=== PATIENT | female | born 1970 | race Caucasian/White ===

== ENCOUNTER 2017-01-17 13:52 | Emergency (ER) | payer OTHER ==
[2017-01-17 14:04] VITALS: BP 107/50
[2017-01-17] MEDS ORDERED: Lidocaine 2% VISCOUS* 15 ML UDC PO ONE (14:14)
--- NOTE | 2017-01-17 14:21 | UC ---
Dental HPI - HPI Summary HPI Summary: 46 YEAR OLD FEMALE PRESENTS WITH COMPLAINS OF LEFT DENTAL/GUM PAIN. OF NOTE SHE HAD A TOOTH PULLED YESTERDAY. - History of Current Complaint Chief Complaint: UCDentalProblem Stated Complaint: DENTAL PAIN ARM PAIN Time Seen by Provider: 01/17/17 13:56 Hx Obtained From: Patient Onset/Duration: Sudden Onset Severity: Moderate Pain Scale Used: 0-10 Numeric - 7 Aggravating: Chewing - Allergies/Home Medications Allergies/Adverse Reactions: Allergies Allergy/AdvReac Type Severity Reaction Status Date / Time Sulfa Drugs Allergy Rash Verified 07/03/15 13:48 PMH/Surg Hx/FS Hx/Imm Hx Previously Healthy: Yes - Surgical History Surgical History: Yes Surgery Procedure, Year, and Place: [place], [place] [facility] [place] [facility] [place] [facility] [place] LEFT KNEE ARTHROSCOPY PARTIAL MEDIAL MENISCECTOMY[place] [facility] [place] - Family History Known Family History: Positive: None - Social History Alcohol Use: Rare Alcohol Amount: 1 PER MONTH Substance Use Type: Excessive Caffeine Substance Use Comment - Amount & Last Used: 2 CANS PEPSI, 3 CANS OF ENERGY DRINKS Smoking Status (MU): Heavy Every Day Tobacco Smoker Type: Cigarettes Amount Used/How Often: 1 PPD Length of Time of Smoking/Using Tobacco: 25 YEARS Have You Smoked in the Last Year: Yes Review of Systems Constitutional: Negative Skin: Negative Eyes: Negative ENT: Dental Pain Respiratory: Negative Cardiovascular: Negative Gastrointestinal: Negative Genitourinary: Negative Motor: Negative Neurovascular: Negative Musculoskeletal: Negative Neurological: Negative Psychological: Negative All Other Systems Reviewed And Are Negative: Yes Physical Exam Triage Information Reviewed: Yes Vital Signs: Initial Vital Signs Temp 36.7 C 01/17/17 13:54 Pulse 60 01/17/17 13:54 Resp 18 01/17/17 13:54 BP 107/50 01/17/17 13:54 Pulse Ox 99 01/17/17 13:54 Eye Exam: Normal ENT Exam: Normal Dental: Positive: Abscess @ Neck exam: Normal Neck: Positive: 1 Respiratory Exam: Normal Cardiovascular Exam: Normal Abdominal Exam: Normal Musculoskeletal Exam: Normal Neurological Exam: Normal Psychological Exam: Normal Skin Exam: Normal Dental Complaint Course/Dx - Differential Dx/Diagnosis Differential Diagnosis/Dx: Dental Abscess Provider Diagnoses: DENTAL ABSCESS Discharge - Discharge Plan Condition: Stable Disposition: HOME Prescriptions: Amoxicillin/Clavulanate TAB* [Augmentin TAB 875*] 875 mg PO BID #20 tab Chlorhexidine MW 0.12% 473ML* [Peridex Mouth Wash 0.12%*] 15 ml PO TID PC #1 btl Magic M W2 Mark/Maal/Nyst/Lido* 5 ml SWISH SPIT QID #120 ml Methylprednisolone [Medrol Dosepak 4 MG*] 4 mg PO .SEE YUNG INSTRUCTION #21 tab Patient Education Materials: Dental Abscess (ED) Referrals: Adonis Rodriguez MD [Primary Care Provider] - Chad Machado MD [Medical Doctor] -
== END 2017-01-17 14:40 | disposition home or self-care (01) ==
LOC: UCEAST 13:52
DX: K04.7 Periapical abscess without sinus (principal); Z88.2 Allergy status to sulfonamides; F17.210 Nicotine dependence, cigarettes, uncomplicated
CPT/HCPCS: 99212; G0463

== ENCOUNTER 2022-12-13 13:25 | Inpatient (IN) ==
[2022-12-13] MEDS ORDERED: Ondansetron 4 mg VIAL 2 MG/ML 2 ml VIAL IV ONE (13:42)
[2022-12-13] MEDS ORDERED: NS 0.9% 1000 ml BAG 1,000 ML IV ONE ×2 (13:42→16:14)
[2022-12-13 14:05] LABS: ABS Basophils 0.1 10^3/uL (0.0-0.1); ABS Lymphocytes 1.3 10^3/uL (1.0-4.8); ABS Monocytes 0.9 10^3/uL (0.0-0.9); ABS Neutrophils 9.4 10^3/uL (1.5-7.6); ABS Nucleated RBC 0.01 10^3/ul; Eosinophil % 0.2 %; Hematocrit 34.4 % (35-45); Hemoglobin 11.4 g/dL (11.5-14.3); Lymphocyte % 11.3 %; Mean Corpuscular Hemoglobin 28.3 pg (27-33); Mean Corpuscular Hgb Conc 33.1 g/dL (31-36); Mean Corpuscular Volume 85.4 fL (80-97); Mean Platelet Volume 8.6 fL (7.5-11.2); Nucleated Red Blood Cells % 0.1 /100 WBC (0.0-0.4); Platelet Count 228 10^3/uL (150-450); Red Blood Count 4.03 10^6/uL (3.63-4.92); Red Cell Distribution Width 14.4 % (12-17); White Blood Count 11.6 10^3/uL (3.8-11.8)
[2022-12-13 14:22] LABS: ALT 19 U/L (7-52); AST 17 U/L (13-39); Albumin 3.9 g/dL (3.2-5.2); Albumin/Globulin Ratio 1.4 (1-3); Alkaline Phosphatase 86 U/L (35-149); Anion Gap 7 mmol/L (2-16); Blood Urea Nitrogen 10 mg/dL (6-24); CO2 Carbon Dioxide 22 mmol/L (22-32); Calcium 9.1 mg/dL (8.6-10.3); Chloride 102 mmol/L (101-111); Creatinine, Serum 1.11 mg/dL (0.51-0.95); Globulin 2.7 g/dL (2-4); Glucose 100 mg/dL (70-100); Lipase < 10 U/L (11.0-82.0); Magnesium 1.8 mg/dL (1.9-2.7); Potassium 3.4 mmol/L (3.5-5.0); Sodium 131 mmol/L (135-145); Total Protein 6.6 g/dL (6.4-8.9); eGFR CKD-EPI 59.8 (>60)
[2022-12-13 14:28] LABS: HCG Pregnancy 1.83 mIU/mL
[2022-12-13] MEDS ORDERED: Iodixanol (CONTRAST) 320 MG/ML 100 ML SDV IV ONE (14:31)
[2022-12-13 15:36] LABS: Urine Appearance Cloudy; Urine Bilirubin Negative (Negative); Urine Blood 2+ (Negative); Urine Color Yellow; Urine Glucose Negative (Negative); Urine Ketones Negative (Negative); Urine Nitrite Positive (Negative); Urine Protein Negative (Negative); Urine Specific Gravity 1.014 (1.002-1.030); Urine Urobilinogen Negative (Negative)
[2022-12-13 15:41] LABS: Urine Bacteria 1+ (Absent); Urine Red Blood Cell 2+(6-10/hpf) (Absent); Urine Squamous Epithelial Cell Present (Absent); Urine White Blood Cell Trace(0-5/hpf) (Absent)
[2022-12-13] MEDS ORDERED: cefTRIAXone 1 gm/50 mL D5W 1 GM/50 ML BAG IV ONE (16:12)
[2022-12-13] MEDS ORDERED: Magnesium Sulfate 2 gm BAG 2 GM/50 ML BAG IVPB ONE (16:40)
[2022-12-13] MEDS ORDERED: Ondansetron 4 mg VIAL 2 MG/ML 2 ml VIAL IV PRN (17:27)
[2022-12-13] MEDS ORDERED: Albuterol HFA INHALER 8 gm MDI INH PRN (17:39)
[2022-12-13] MEDS: Mometasone/Formoter 200/5 MDI INH SCH (18:58)
[2022-12-13] MEDS: Lactated Ringers 1000 ml BAG 1,000 ML IV SCH ×2 (19:55→20:37)
[2022-12-13] MEDS: Enoxaparin 40 MG/0.4 ML SYR SUBCUT SCH (19:56)
[2022-12-13] MEDS: KCL 10 MEQ/50 ML IVPREMIX 10 MEQ/50 ML BAG IV ONE ×2 (20:34→20:38)
[2022-12-14 06:57] LABS: ABS Eosinophils 0.1 10^3/uL (0.0-0.5); ABS Lymphocytes 1.8 10^3/uL (1.0-4.8); ABS Monocytes 0.7 10^3/uL (0.0-0.9); ABS Neutrophils 6.4 10^3/uL (1.5-7.6); Eosinophil % 0.8 %; Hematocrit 31.2 % (35-45); Hemoglobin 10.5 g/dL (11.5-14.3); Mean Corpuscular Hemoglobin 29.6 pg (27-33); Mean Corpuscular Hgb Conc 33.8 g/dL (31-36); Mean Corpuscular Volume 87.7 fL (80-97); Mean Platelet Volume 9.1 fL (7.5-11.2); Platelet Count 184 10^3/uL (150-450); Red Blood Count 3.56 10^6/uL (3.63-4.92); Red Cell Distribution Width 14.5 % (12-17); White Blood Count 9.1 10^3/uL (3.8-11.8)
[2022-12-14 07:07] LABS: Calcium 8.5 mg/dL (8.6-10.3); Creatinine, Serum 1.01 mg/dL (0.51-0.95); Magnesium 1.8 mg/dL (1.9-2.7); Phosphorus 2.2 mg/dL (2.5-5.0); Potassium 3.6 mmol/L (3.5-5.0)
[2022-12-14] MEDS: Mometasone/Formoter 200/5 MDI INH SCH ×2 (07:21→19:27)
[2022-12-14] MEDS ORDERED: Potassium Phosphate IV 15 MMOL in NS 0.9% 250 ml 250 ML IVPB ONE (09:06)
[2022-12-14] MEDS: cefTRIAXone 1 gm/50 mL D5W 1 GM/50 ML BAG IV SCH (16:52)
[2022-12-14] MEDS: Enoxaparin 40 MG/0.4 ML SYR SUBCUT SCH (21:20)
[2022-12-15 06:42] LABS: Calcium 8.7 mg/dL (8.6-10.3); Creatinine, Serum 0.87 mg/dL (0.51-0.95); Magnesium 1.7 mg/dL (1.9-2.7); Potassium 3.5 mmol/L (3.5-5.0); eGFR CKD-EPI 80.1 (>60)
[2022-12-15] MEDS ORDERED: Magnesium Sulfate 2 gm BAG 2 GM/50 ML BAG IVPB ONE (07:12)
[2022-12-15] MEDS: Mometasone/Formoter 200/5 MDI INH SCH ×2 (07:42→19:16)
[2022-12-15] MEDS ORDERED: Potassium Chlor 20 meq TAB.ER PO ONE (09:45)
[2022-12-15] MEDS: cefTRIAXone 1 gm/50 mL D5W 1 GM/50 ML BAG IV SCH (16:12)
[2022-12-15] MEDS: Enoxaparin 40 MG/0.4 ML SYR SUBCUT SCH (20:00)
[2022-12-16 06:51] LABS: ABS Eosinophils 0.1 10^3/uL (0.0-0.5); ABS Lymphocytes 2.3 10^3/uL (1.0-4.8); Eosinophil % 0.6 %; Hematocrit 28.5 % (35-45); Hemoglobin 9.7 g/dL (11.5-14.3); Mean Corpuscular Hemoglobin 28.9 pg (27-33); Mean Corpuscular Volume 85.2 fL (80-97); Platelet Count 244 10^3/uL (150-450); Red Blood Count 3.35 10^6/uL (3.63-4.92); Red Cell Distribution Width 14.4 % (12-17); White Blood Count 9.3 10^3/uL (3.8-11.8)
[2022-12-16] MEDS: Mometasone/Formoter 200/5 MDI INH SCH (07:55)
[2022-12-16 10:03] VITALS: BP 135/69
== END 2022-12-16 12:25 | disposition home or self-care (01) | DRG 463 ==
LOC: ED 13:25 → EDHOLD 13:25 → SUATTDRO 16:37 → MED 17:39
PROVIDERS: ADMIT Student in an Organized Health Care Education/Training Program; ATTEND Internal Medicine